=== PATIENT | male | born 1965 | race Caucasian/White ===

== ENCOUNTER 2018-07-10 15:56 | Inpatient (IN) ==
[2018-07-10] MEDS ORDERED: ceFAZolin 2 GM Premix Inj 2 GM/50 ML PIGGYBACK IV.SIG ONE (16:03)
[2018-07-10] MEDS ORDERED: Diphtheria/Tetanus/Pertussis Vaccine Inj 0.5 ML Syringe IM ONE ×2 (16:03→16:38)
[2018-07-10] MEDS ORDERED: Midazolam Inj 5 MG/ML 1 ML Vial ONE (16:11)
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
[2018-07-10 16:23] LABS: Baso # (Auto) 0.1 th/mm3 (0.0-0.2); Baso % (Auto) 0.9 % (0.0-2.0); Eos % (Auto) 0.3 % (0.0-4.0); Hematocrit 44.8 % (39.0-51.0); Hemoglobin 15.5 gm/dL (13.0-17.0); Lymph # (Auto) 1.5 th/mm3 (1.0-4.8); Lymph % (Auto) 16.8 % (9.0-44.0); Mean Corpuscular HGB Conc 34.5 % (32.0-36.0); Mean Corpuscular Hemoglobin 33.5 pg (27.0-34.0); Mean Corpuscular Volume 96.9 fL (80.0-100.0); Mean Platelet Volume 7.4 fL (7.0-11.0); Mono # (Auto) 0.7 th/mm3 (0.0-0.9); Neut # (Auto) 6.8 th/mm3 (1.8-7.7); Platelet Count 305 th/mm3 (150-450); Red Blood Count 4.62 mil/mm3 (4.50-5.90); Red Cell Distribution Width 13.8 % (11.6-17.2); White Blood Count 9.2 th/mm3 (4.0-11.0)
[2018-07-10 16:39] LABS: Anion Gap 11 meq/L (5-15); Blood Urea Nitrogen 12 mg/dL (7-18); Calcium 9.1 mg/dL (8.5-10.1); Carbon Dioxide 24.2 meq/L (21.0-32.0); Chloride 106 meq/L (98-107); Glomerular Filtration Rate 44 mL/min (>89); Glucose,Random 114 mg/dL (74-106); Sodium 141 meq/L (136-145)
[2018-07-10 16:40] LABS: Potassium 4.9 meq/L (3.5-5.1)
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
[2018-07-10 16:44] LABS: Activated Partial Thrombo Time 23.4 sec (23.4-31.7); Prothrombin Time 10.2 sec (9.8-11.6)
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
[2018-07-10] MEDS ORDERED: Bupivacaine/Epinephrine Inj 0.25% 50 ML Vial INFILTRATN ONE (17:25)
[2018-07-10] MEDS ORDERED: Acetaminophen 325 MG Tablet PO PRN (18:51)
[2018-07-10] MEDS ORDERED: Ketorolac Inj 30 MG/ML (IVP) Vial IV.PUSH PRN (18:51)
--- NOTE | 2018-07-10 19:03 | P.OP ---
- Preoperative Diagnosis (1) Laceration of left wrist - Postoperative Diagnosis (1) Laceration of left wrist Date of procedure: 07/10/18 Procedure: exploration, wash, repair of laceration left wrist Anesthesia: GETA Surgeon: Angel López MD Estimated blood loss (mL): 2 Operation and Findings: transverse laceration volar aspect of the distal forearm/wrist measuring 5-6 cms no tendon or nerve involvement
[2018-07-10] MEDS ORDERED: *Meperidine Inj 25 MG/ML Vial PERIprocedural Use ONLY ONE (19:13)
[2018-07-10] MEDS ORDERED: fentaNYL Citrate Inj 100 MCG/2 ML Ampul ONE (19:19)
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
[2018-07-10] MEDS: Sod Chloride 0.9% Inj 1,000 ML IV.CONT SCH (19:43)
[2018-07-10] MEDS ORDERED: Pantoprazole Inj 40 MG Vial IV.PUSH SCH (20:00)
[2018-07-10] MEDS ORDERED: Multivitamin Inj 10 ML, Thiamine Inj 100 MG, Folic Acid Inj 1 MG in Sodium Chlor 0.9% I... IV.SIG SCH (20:00)
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
[2018-07-10] MEDS: Docusate Sodium 100 MG Capsule PO SCH (22:19)
[2018-07-11 00:36] LABS: Bilirubin,Urine Negative (Negative); Clarity,Urine Clear (Clear); Color,Urine Yellow (Yellw/Straw); Glucose,Urine (UA) Negative (Negative); Leukocyte Esterase,Urine Trace (Negative); Mucus,Urine Few /lpf (Occasional); Nitrite,Urine Negative (Negative); Specific Gravity,Urine 1.029 (1.002-1.035)
[2018-07-11 00:41] LABS: Amphetamine Screen,Urine Neg (Neg); Barbiturate Screen,Urine Neg (Neg); Cannabinoid Screen,Urine Neg (Neg); Cocaine Screen,Urine Pos (Neg)
[2018-07-11 00:55] LABS: Opiate Screen,Urine Neg (Neg)
[2018-07-11] MEDS: Sod Chloride 0.9% Inj 1,000 ML IV.CONT SCH ×3 (04:27→17:30)
[2018-07-11 05:34] LABS: Baso % (Auto) 0.1 % (0.0-2.0); Hematocrit 33.6 % (39.0-51.0); Hemoglobin 11.6 gm/dL (13.0-17.0); Lymph # (Auto) 0.8 th/mm3 (1.0-4.8); Lymph % (Auto) 8.3 % (9.0-44.0); Mean Corpuscular HGB Conc 34.7 % (32.0-36.0); Mean Corpuscular Hemoglobin 33.2 pg (27.0-34.0); Mean Corpuscular Volume 95.7 fL (80.0-100.0); Mean Platelet Volume 7.4 fL (7.0-11.0); Mono # (Auto) 0.7 th/mm3 (0.0-0.9); Mono % (Auto) 6.7 % (0.0-8.0); Neut # (Auto) 8.7 th/mm3 (1.8-7.7); Neut % (Auto) 84.9 % (16.0-70.0); Platelet Count 238 th/mm3 (150-450); Red Blood Count 3.51 mil/mm3 (4.50-5.90); Red Cell Distribution Width 13.6 % (11.6-17.2); White Blood Count 10.2 th/mm3 (4.0-11.0)
[2018-07-11 05:55] LABS: Alanine Aminotransferase 37 U/L (12-78); Albumin 3.1 g/dL (3.4-5.0); Alkaline Phosphatase 67 U/L (45-117); Anion Gap 8 meq/L (5-15); Aspartate Aminotransferase 21 U/L (15-37); Blood Urea Nitrogen 9 mg/dL (7-18); Calcium 7.8 mg/dL (8.5-10.1); Carbon Dioxide 24.9 meq/L (21.0-32.0); Chloride 108 meq/L (98-107); Glomerular Filtration Rate 71 mL/min (>89); Glucose,Random 91 mg/dL (74-106); Potassium 4.5 meq/L (3.5-5.1); Sodium 141 meq/L (136-145); Total Protein 5.6 g/dL (6.4-8.2)
[2018-07-11] MEDS: Docusate Sodium 100 MG Capsule PO SCH (10:22)
[2018-07-11 12:49] VITALS: TEMP 98.3; O2SAT 98
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
[2018-07-11 16:26] VITALS: BP 161/83; PULSE 90; RESP 22
== END 2018-07-11 17:50 | disposition short-term general hospital (02) | DRG 330 ==
LOC: NEPI 15:56 → EDBD 16:48 → NEDA 16:48 → N03 21:35
PROVIDERS: ADMIT Surgery; ATTEND Surgery
CPT/HCPCS: 70498; 71010; 71045; 71260; 74177; 80048; 80053; 80307; 81001; 85025; 85610; 85730; 86850; 86900; 86901; 87086; 87641; 90715; C9113; J0690; J1885; J2175; J2250; J3010; J3411; J7030; J7040; Q9967